=== PATIENT | female | born 1985 | race Caucasian/White ===

== ENCOUNTER 2020-05-06 20:27 | Emergency (ER) | payer OTHER, MEDICAID ==
[~2020-05-06] VITALS: Ht 162.6 cm; Wt 121.1 kg
[2020-05-06] MEDS ORDERED: ESTRACE0.5 MG PO (20:37)
[2020-05-06] MEDS ORDERED: ZESTRIL10 MG PO (20:37)
[2020-05-06] MEDS ORDERED: PROTONIX 20 MG20 M1 PO (20:38)
[2020-05-06 21:05] LABS: ABSOLUTE EOSINOPHILS 0.3 thou/uL (0.0-0.7); ABSOLUTE LYMPHOCYTES 2.8 thou/uL (0.8-5.3); ABSOLUTE MONOCYTES 0.6 thou/uL (0.0-1.2); ABSOLUTE NEUTROPHILS 8.8 thou/uL (1.6-8.1); BASOPHILS 0.3 %; EOSINOPHILS 2.3 %; HEMATOCRIT 38.3 % (37.0-47.0); HEMOGLOBIN 12.6 gm/dL (12.0-15.0); LYMPHOCYTES 22.3 %; MCH 26.3 pg (26.0-34.0); MCHC 32.8 g/dL (28.0-37.0); MCV 80.2 fL (80.0-100.0); MONOCYTES 4.9 %; MPV 8.5 fl. (7.2-11.1); NUCLEATED RBCS 0 /100WBC; PLATELET COUNT* 323 thou/uL (150-400); POLYS 70.2 %; RBC 4.77 mil/uL (4.20-5.00); RDW-CV 13.3 % (10.5-14.5); WBC 12.5 thou/uL (4.0-11.0)
[2020-05-06 21:18] LABS: CALCIUM 8.5 mg/dL (8.5-10.1); CREATININE 1.1 mg/dL (0.6-1.3); POTASSIUM 3.5 mmol/L (3.5-5.1)
[2020-05-06 21:22] LABS: ALBUMIN 3.1 g/dL (3.4-5.0); APTT 24.2 Seconds (25.0-31.3); PROTIME 10.3 Seconds (9.20-11.50); TOTAL BILIRUBIN 0.3 mg/dL (<0.1-1.0); TOTAL PROTEIN 7.3 g/dL (6.4-8.2)
[2020-05-07 02:03] LABS: URINE BILIRUBIN NEGATIVE (Negative); URINE BLOOD NEGATIVE (Negative); URINE CLARITY CLEAR; URINE COLOR YELLOW; URINE GLUCOSE-RANDOM NEGATIVE (Negative); URINE KETONES NEGATIVE (Negative); URINE LEUKOCYTES-REFLEX NEGATIVE (Negative); URINE NITRITE-REFLEX NEGATIVE (Negative); URINE PROTEIN NEGATIVE (Negative); URINE SPECIFIC GRAVITY 1.025 (1.005-1.030); URINE UROBILINOGEN 0.2 E.U./dl (0.2-1.0)
[2020-05-07] MEDS ORDERED: CARAFATE 1 GM TA1 GM PO (02:05)
[2020-05-07 02:15] VITALS: BP 114/65
--- NOTE | 2020-05-07 15:22 | EKG ---
[place] [address] ELECTROCARDIOGRAM REPORT Name: ENRICO GA Room: [facility]#: [id number] Admission: 05/06/20 Attend Phys: Discharge: 05/07/20 Date of : 85 Date of Service: 05/06/202032 Report #: [id number] THIS REPORT FOR: //name// [facility] ED Test Date: 2020-05-06 Test Time: 20:33:37 Pat Name: ENRICO GA Department: Room: Gender: F Road Inspector: BETH : 1985 Requested By: Enrrique Simmons Order Number: [id number] MD: Ja Miller Measurements Intervals [place] Rate: 90 P: 67 WI: 152 QRS: 31 QRSD: 90 T: 32 QT: 345 QTc: 422 Interpretive Statements Sinus rhythm No previous ECG available for comparison Electronically Signed On 05-07-2020 15:22:05 ARCHITECTURAL ENGINEER by Ja Miller [email or web address] <ELECTRONICALLY SIGNED> By: Ja Miller MD, [facility] 05/07/201521 32 32 Ja Miller MD, FACC /EPI
== END 2020-05-07 02:15 | disposition still patient (30) ==
LOC: M.ERS 20:27
PROVIDERS: Nurse Practitioner Psychiatric/Mental Health; Personal Emergency Response Attendant
DX: U07.1 COVID-19 (principal); R07.9 Chest pain, unspecified; I10 Essential (primary) hypertension; E11.9 Type 2 diabetes mellitus without complications; Z90.710 Acquired absence of both cervix and uterus; Z79.899 Other long term (current) drug therapy; Z88.2 Allergy status to sulfonamides; Z88.8 Allergy status to other drugs, medicaments and biological substances; Z91.041 Radiographic dye allergy status